=== PATIENT | male | born 1945 | race Caucasian/White ===

== ENCOUNTER 2018-04-07 14:16 | Inpatient (IN) | payer MEDICARE, OTHER ==
[~2018-04-07] VITALS: Ht 180.3 cm; Wt 113.5 kg
[~2018-04-07 14:16] MED LIST: ALBU8.5H8 IH; ASPI-611 PO; ATOR80TA PO; BUPR150T6 PO; CALC-1197 PO; CARV-50 PO; DIGO125T97 PO; FLO110IN INH; FURO40TA4 PO; MULT-227 PO; NIT10P TD; NITR0.4T48 SL; OMEG1CAP2 PO; OMEP20TA5 PO; SPIIN INH; WARF-65 PO
[2018-04-07] MEDS ORDERED: ipratropium/albuterol 3ml nebule NEB ONE (14:25)
[2018-04-07] MEDS ORDERED: methylPREDNISolone sod succ 125mg/2ml vial IV ONE (14:25)
[2018-04-07] MEDS ORDERED: normal saline 1000ML IV soln IVB ONE (14:25)
[2018-04-07] MEDS ORDERED: verapamil 2.5 mg/ml inj IV ONE (14:45)
[2018-04-07 14:55] LABS: ABG BASE EXCESS 1.5 mmol/L (-2.0-3.0); ABG HCO3 25.6 mmol/L (22.0-26.0); ABG OXYGEN SATURATION 90.8 % (95-98); ABG PCO2 (T) 38.5 mmHg (35.0-48.0); ABG PH (T) 7.441 (7.350-7.450); ABG PO2 (T) 59.8 mmHg (83-108); ALLEN'S TEST Positive; FCOHb 1.3 % (0.5-1.5); FLOW 4 L/min; FMetHb 0.1 % (0.3-1.12); FO2Hb 89.5 % (94-100); TOTAL HEMOGLOBIN 12.5 G/dl (14.0-18.0)
[2018-04-07 14:55] LABS: BASOPHILS % (AUTO) 0.3 % (0-1); EOSINOPHILS % (AUTO) 0.2 % (0-6); HEMOGLOBIN 11.5 g/dl (14.0-17.9); LYMPHOCYTES # (AUTO) 0.6 X10'3 (1.1-4.8); MEAN CORPUSCULAR HEMOGLOBIN 29.5 PG (27.0-31.0); MEAN CORPUSCULAR HGB CONC 32.9 % (33.0-36.5); MEAN CORPUSCULAR VOLUME 89.6 FL (78-98); MEAN PLATELET VOLUME 7.4 FL (7.4-10.4); MONOCYTES # (AUTO) 0.6 X10'3 (0-0.9); MONOCYTES % (AUTO) 7.2 % (2-12); NEUTROPHILS # (AUTO) 6.7 X10'3 (1.8-7.7); NEUTROPHILS % (AUTO) 84.3 % (42-75); PLATELET COUNT 254 X10'3 (140-440); RED BLOOD COUNT 3.91 X10'6 (4.70-6.10); RED CELL DISTRIBUTION WIDTH 16.7 % (11.5-14.5); WHITE BLOOD COUNT 7.9 X10'3 (4.5-11.0)
[2018-04-07 15:06] LABS: INR 1.3 INR; PARTIAL THROMBOPLASTIN TIME 30 SECONDS (22-32)
[2018-04-07 15:12] LABS: ALANINE AMINOTRANSFERASE 25 U/L (12-78); ALBUMIN 3.1 G/DL (3.4-5.0); ALBUMIN/GLOBULIN RATIO 0.7 (1.1-1.5); ALKALINE PHOSPHATASE 126 IU/L (46-116); ANION GAP 8 (8-16); ASPARTATE AMINO TRANSFERASE 17 U/L (10-37); BILIRUBIN,TOTAL 0.9 MG/DL (0.1-1.0); BLOOD UREA NITROGEN 19 MG/DL (7-18); BUN/CREATININE RATIO 13.7 (5.4-32.0); CALCIUM 8.6 MG/DL (8.5-10.1); CHLORIDE 104 MMOL/L (99-107); CREATININE 1.39 MG/DL (0.60-1.10); GLUCOSE 151 MG/DL (70-104); POTASSIUM 4.2 MMOL/L (3.5-5.1); SODIUM 142 MMOL/L (135-145); TOTAL CARBON DIOXIDE 30.3 MMOL/L (24-32); TOTAL PROTEIN 7.6 G/DL (6.4-8.2); eGFR 51 ML/MIN
[2018-04-07] MEDS ORDERED: furosemide 10 MG/1 ML 10ml inj IV ONE (15:35)
[2018-04-07] MEDS ORDERED: HYDROcodone/acetaminophen 5mg/325mg tablet PO PRN (17:40)
[2018-04-07] MEDS ORDERED: ondansetron/PF 4mg/2ml inj IV PRN (17:40)
[2018-04-07] MEDS ORDERED: diltiazem 5mg/ml 5ml inj. IV PRN (17:50)
[2018-04-07] MEDS: ipratropium/albuterol 3ml nebule NEB SCH (19:53)
[2018-04-07 20:00] VITALS: BP 130/92
[2018-04-07] MEDS: furosemide 40mg/4ml inj IV SCH (20:10)
[2018-04-07] MEDS: methylPREDNISolone sod succ/PF 40mg inj. IV SCH (20:10)
[2018-04-07 23:00] VITALS: BP 120/84
[2018-04-07] MEDS: albuterol 2.5 MG/3 ML nebule NEB PRN (23:57)
[2018-04-08] VITALS (16 sets, daily range): BP systolic 91–130; BP diastolic 51–95
[2018-04-08 02:18] LABS: BASOPHILS % (AUTO) 0 % (0-1); EOSINOPHILS % (AUTO) 0 % (0-6); HEMATOCRIT 32.8 % (42.0-52.0); HEMOGLOBIN 10.9 g/dl (14.0-17.9); LYMPHOCYTES # (AUTO) 0.3 X10'3 (1.1-4.8); MEAN CORPUSCULAR HEMOGLOBIN 29.5 PG (27.0-31.0); MEAN CORPUSCULAR HGB CONC 33.3 % (33.0-36.5); MEAN CORPUSCULAR VOLUME 88.5 FL (78-98); MEAN PLATELET VOLUME 7.5 FL (7.4-10.4); MONOCYTES % (AUTO) 0.6 % (2-12); NEUTROPHILS # (AUTO) 4.5 X10'3 (1.8-7.7); NEUTROPHILS % (AUTO) 93.4 % (42-75); PLATELET COUNT 235 X10'3 (140-440); RED CELL DISTRIBUTION WIDTH 16.3 % (11.5-14.5); WHITE BLOOD COUNT 4.8 X10'3 (4.5-11.0)
[2018-04-08 02:35] LABS: ANION GAP 9 (8-16); BLOOD UREA NITROGEN 21 MG/DL (7-18); BUN/CREATININE RATIO 14.7 (5.4-32.0); CALCIUM 8.6 MG/DL (8.5-10.1); CHLORIDE 102 MMOL/L (99-107); CREATININE 1.43 MG/DL (0.60-1.10); GLUCOSE 185 MG/DL (70-104); POTASSIUM 3.6 MMOL/L (3.5-5.1); SODIUM 140 MMOL/L (135-145); TOTAL CARBON DIOXIDE 29.2 MMOL/L (24-32); eGFR 49 ML/MIN
[2018-04-08] MEDS: albuterol 2.5 MG/3 ML nebule NEB PRN (03:09)
[2018-04-08] MEDS ORDERED: diltiazem 5mg/ml 5ml inj. IV ONE ×2 (05:35→15:35)
[2018-04-08] MEDS: ipratropium/albuterol 3ml nebule NEB SCH ×4 (07:00→19:50)
[2018-04-08] MEDS: methylPREDNISolone sod succ/PF 40mg inj. IV SCH ×4 (08:58→23:06)
[2018-04-08] MEDS: furosemide 40mg/4ml inj IV SCH ×2 (08:58→20:22)
[2018-04-08] MEDS ORDERED: nitroGLYCERIN 0.4mg SUBLingual tab SL PRN (10:10)
[2018-04-08] MEDS ORDERED: APIX5TAB3 PO (10:11)
[2018-04-08] MEDS ORDERED: diltiazem-NS 100mg/100ml 100 ML IV PRN (10:14)
[2018-04-08] MEDS ORDERED: CefTRIAXone/D5W-Rocephin 1gm 50 ML IV SCH (10:25)
[2018-04-08] MEDS: apixaban 5mg tablet PO SCH ×2 (10:43→20:23)
[2018-04-08] MEDS ORDERED: [UNRECOGNIZED DRUG - OTHER] IV ONE (10:49)
[2018-04-08] MEDS ORDERED: CEFTRIAXONE IV ONE (10:49)
[2018-04-08] MEDS: cefTRIAXone 1g/NS 100ml IVPB 100 ML IV SCH (10:55)
[2018-04-08] MEDS: aspirin 81mg tablet.DR PO SCH (11:12)
[2018-04-08] MEDS: calcium carbonate/vitamin D3 tablet PO SCH (12:38)
[2018-04-08] MEDS ORDERED: digoxin 125mcg (0.125mg) tablet PO ONE (13:30)
[2018-04-08] MEDS: potassium Cl 20 mEq SR tablet PO SCH (17:04)
[2018-04-08] MEDS: atorvastatin 20mg tablet PO SCH (17:04)
[2018-04-08] MEDS: budesonide 0.5mg/2ml UD nebule IH SCH (19:51)
[2018-04-08] MEDS: carvedilol 6.25mg tablet PO SCH (20:23)
[2018-04-08] MEDS: buPROPion SR 150mg tablet PO SCH (20:23)
[2018-04-08] MEDS ORDERED: digoxin 250mcg/ml 2ml ampule IV ONE (22:45)
[2018-04-09] VITALS (15 sets, daily range): BP systolic 93–129; BP diastolic 64–99
[2018-04-09] MEDS: diltiazem-NS 100mg/100ml 100 ML IV PRN ×2 (01:44→08:05)
[2018-04-09 05:44] LABS: ALBUMIN 2.9 G/DL (3.4-5.0); ANION GAP 8 (8-16); BLOOD UREA NITROGEN 27 MG/DL (7-18); BUN/CREATININE RATIO 23.1 (5.4-32.0); CALCIUM 9.2 MG/DL (8.5-10.1); CHLORIDE 100 MMOL/L (99-107); CREATININE 1.17 MG/DL (0.60-1.10); GLUCOSE 137 MG/DL (70-104); SODIUM 136 MMOL/L (135-145); TOTAL CARBON DIOXIDE 28.2 MMOL/L (24-32); eGFR 62 ML/MIN
[2018-04-09 05:48] LABS: POTASSIUM 4.2 MMOL/L (3.5-5.1)
[2018-04-09] MEDS: budesonide 0.5mg/2ml UD nebule IH SCH ×2 (07:55→20:04)
[2018-04-09] MEDS: ipratropium/albuterol 3ml nebule NEB SCH ×4 (07:56→20:05)
[2018-04-09] MEDS ORDERED: digoxin 125mcg (0.125mg) tablet PO SCH (08:00)
[2018-04-09] MEDS ORDERED: non-formulary drug (Tiotropium Bromide (SPIRIVA inhaler) 1 CAP) INH SCH (08:00)
[2018-04-09] MEDS: nitroGLYCERIN 0.4mg/hour patch TD SCH (08:00)
[2018-04-09] MEDS: cefTRIAXone 1g/NS 100ml IVPB 100 ML IV SCH (08:05)
[2018-04-09] MEDS: apixaban 5mg tablet PO SCH ×2 (08:09→19:41)
[2018-04-09] MEDS: lisinopril 2.5mg tablet PO SCH (08:09)
[2018-04-09] MEDS: buPROPion SR 150mg tablet PO SCH ×2 (08:09→19:40)
[2018-04-09] MEDS: furosemide 40mg/4ml inj IV SCH ×2 (08:09→19:41)
[2018-04-09] MEDS: aspirin 81mg tablet.DR PO SCH (08:09)
[2018-04-09] MEDS: multivitamins, therapeutics tablet PO SCH (08:09)
[2018-04-09] MEDS: potassium Cl 20 mEq SR tablet PO SCH ×2 (08:09→16:53)
[2018-04-09] MEDS: carvedilol 6.25mg tablet PO SCH (08:09)
[2018-04-09] MEDS: methylPREDNISolone sod succ/PF 40mg inj. IV SCH ×3 (08:09→23:23)
[2018-04-09] MEDS: calcium carbonate/vitamin D3 tablet PO SCH (08:09)
[2018-04-09] MEDS: pantoprazole 40mg Tablet.DR PO SCH (08:09)
[2018-04-09] MEDS: OMEGA-3/DHA/EPA/FISH OIL 1 EACH CAPSULE.DR PO SCH (08:36)
[2018-04-09] MEDS ORDERED: diltiazem-NS 100mg/100ml 100 ML IV PRN ×9 (10:14→21:25)
[2018-04-09] MEDS ORDERED: digoxin 250mcg (0.25mg) tablet PO ONE (13:00)
[2018-04-09] MEDS: metoprolol tartrate 25mg tablet PO SCH ×2 (13:31→19:40)
[2018-04-09] MEDS: atorvastatin 20mg tablet PO SCH (16:53)
[2018-04-09] MEDS: lactobacillus rhamnosus 10,000 MMU CELLS/CAPSULE PO SCH (19:40)
[2018-04-09] MEDS: albuterol 2.5 MG/3 ML nebule NEB PRN (23:28)
[2018-04-10] VITALS (15 sets, daily range): BP systolic 101–125; BP diastolic 53–95
[2018-04-10] MEDS ORDERED: diltiazem-NS 100mg/100ml 100 ML IV PRN ×2 (03:35→21:25)
[2018-04-10 05:59] LABS: ALBUMIN 2.9 G/DL (3.4-5.0); ANION GAP 6 (8-16); BLOOD UREA NITROGEN 29 MG/DL (7-18); CALCIUM 8.9 MG/DL (8.5-10.1); CHLORIDE 102 MMOL/L (99-107); CREATININE 1.16 MG/DL (0.60-1.10); GLUCOSE 134 MG/DL (70-104); POTASSIUM 4.4 MMOL/L (3.5-5.1); SODIUM 138 MMOL/L (135-145); TOTAL CARBON DIOXIDE 30.1 MMOL/L (24-32); eGFR 62 ML/MIN
[2018-04-10 07:12] LABS: MAGNESIUM 2.3 MG/DL (1.5-2.4)
[2018-04-10] MEDS: ipratropium/albuterol 3ml nebule NEB SCH ×4 (07:36→19:00)
[2018-04-10] MEDS: budesonide 0.5mg/2ml UD nebule IH SCH ×2 (07:37→19:00)
[2018-04-10] MEDS: cefTRIAXone 1g/NS 100ml IVPB 100 ML IV SCH (07:38)
[2018-04-10] MEDS: buPROPion SR 150mg tablet PO SCH ×2 (07:39→20:08)
[2018-04-10] MEDS: multivitamins, therapeutics tablet PO SCH (07:39)
[2018-04-10] MEDS: furosemide 40mg/4ml inj IV SCH ×2 (07:39→20:08)
[2018-04-10] MEDS: OMEGA-3/DHA/EPA/FISH OIL 1 EACH CAPSULE.DR PO SCH (07:39)
[2018-04-10] MEDS: apixaban 5mg tablet PO SCH ×2 (07:39→20:08)
[2018-04-10] MEDS: calcium carbonate/vitamin D3 tablet PO SCH (07:39)
[2018-04-10] MEDS: aspirin 81mg tablet.DR PO SCH (07:39)
[2018-04-10] MEDS: metoprolol tartrate 25mg tablet PO SCH ×2 (07:39→20:08)
[2018-04-10] MEDS: pantoprazole 40mg Tablet.DR PO SCH (07:40)
[2018-04-10] MEDS: digoxin 125mcg (0.125mg) tablet PO SCH (07:41)
[2018-04-10] MEDS: methylPREDNISolone sod succ/PF 40mg inj. IV SCH ×2 (07:41→17:58)
[2018-04-10] MEDS: potassium Cl 20 mEq SR tablet PO SCH ×2 (07:41→17:58)
[2018-04-10] MEDS: lactobacillus rhamnosus 10,000 MMU CELLS/CAPSULE PO SCH ×2 (07:41→20:08)
[2018-04-10] MEDS: lisinopril 2.5mg tablet PO SCH (07:41)
[2018-04-10] MEDS: nitroGLYCERIN 0.4mg/hour patch TD SCH (08:00)
[2018-04-10] MEDS: diltiazem CD 180mg cap (once-daily) PO SCH (10:11)
[2018-04-10] MEDS: atorvastatin 20mg tablet PO SCH (17:58)
[2018-04-11] MEDS: methylPREDNISolone sod succ/PF 40mg inj. IV SCH ×3 (00:54→20:14)
[2018-04-11 03:00] VITALS: BP 111/68
[2018-04-11 06:00] VITALS: BP 114/60
[2018-04-11 06:58] LABS: ALBUMIN 2.9 G/DL (3.4-5.0); ANION GAP 7 (8-16); BLOOD UREA NITROGEN 33 MG/DL (7-18); BUN/CREATININE RATIO 28.4 (5.4-32.0); CALCIUM 8.6 MG/DL (8.5-10.1); CHLORIDE 102 MMOL/L (99-107); CREATININE 1.16 MG/DL (0.60-1.10); GLUCOSE 122 MG/DL (70-104); POTASSIUM 4.7 MMOL/L (3.5-5.1); SODIUM 137 MMOL/L (135-145); TOTAL CARBON DIOXIDE 28.5 MMOL/L (24-32); eGFR 62 ML/MIN
[2018-04-11] MEDS: nitroGLYCERIN 0.4mg/hour patch TD SCH (08:00)
[2018-04-11] MEDS: ipratropium/albuterol 3ml nebule NEB SCH ×4 (08:42→19:23)
[2018-04-11] MEDS: budesonide 0.5mg/2ml UD nebule IH SCH ×2 (08:42→19:23)
[2018-04-11] MEDS: pantoprazole 40mg Tablet.DR PO SCH (08:47)
[2018-04-11] MEDS: lisinopril 2.5mg tablet PO SCH (08:47)
[2018-04-11] MEDS: potassium Cl 20 mEq SR tablet PO SCH ×2 (08:47→16:42)
[2018-04-11] MEDS: metoprolol tartrate 25mg tablet PO SCH ×2 (08:48→20:15)
[2018-04-11] MEDS: lactobacillus rhamnosus 10,000 MMU CELLS/CAPSULE PO SCH ×2 (08:48→20:15)
[2018-04-11] MEDS: multivitamins, therapeutics tablet PO SCH (08:48)
[2018-04-11] MEDS: calcium carbonate/vitamin D3 tablet PO SCH (08:48)
[2018-04-11] MEDS: apixaban 5mg tablet PO SCH ×2 (08:49→20:15)
[2018-04-11] MEDS: OMEGA-3/DHA/EPA/FISH OIL 1 EACH CAPSULE.DR PO SCH (08:49)
[2018-04-11] MEDS: buPROPion SR 150mg tablet PO SCH ×2 (08:49→20:15)
[2018-04-11] MEDS: aspirin 81mg tablet.DR PO SCH (08:49)
[2018-04-11] MEDS: diltiazem CD 180mg cap (once-daily) PO SCH (08:50)
[2018-04-11] MEDS: digoxin 125mcg (0.125mg) tablet PO SCH (08:56)
[2018-04-11] MEDS: cefTRIAXone 1g/NS 100ml IVPB 100 ML IV SCH (08:58)
[2018-04-11] MEDS: furosemide 40mg/4ml inj IV SCH ×2 (08:58→20:14)
[2018-04-11 11:00] VITALS: BP 131/59
[2018-04-11 15:00] VITALS: BP 129/74
[2018-04-11] MEDS: atorvastatin 20mg tablet PO SCH (16:42)
[2018-04-11 19:00] VITALS: BP 137/75
[2018-04-11 23:07] VITALS: BP 121/63
[2018-04-11] MEDS: albuterol 2.5 MG/3 ML nebule NEB PRN (23:31)
[2018-04-12] MEDS: albuterol 2.5 MG/3 ML nebule NEB PRN (02:54)
[2018-04-12 03:00] VITALS: BP 118/66
[2018-04-12 07:02] LABS: ALBUMIN 2.8 G/DL (3.4-5.0); ANION GAP 4 (8-16); BLOOD UREA NITROGEN 40 MG/DL (7-18); BUN/CREATININE RATIO 31.7 (5.4-32.0); CALCIUM 8.8 MG/DL (8.5-10.1); CHLORIDE 102 MMOL/L (99-107); CREATININE 1.26 MG/DL (0.60-1.10); GLUCOSE 133 MG/DL (70-104); POTASSIUM 4.9 MMOL/L (3.5-5.1); SODIUM 138 MMOL/L (135-145); TOTAL CARBON DIOXIDE 31.8 MMOL/L (24-32); eGFR 57 ML/MIN
[2018-04-12 07:07] VITALS: BP 126/62
[2018-04-12] MEDS: ipratropium/albuterol 3ml nebule NEB SCH ×2 (07:14→11:26)
[2018-04-12] MEDS: budesonide 0.5mg/2ml UD nebule IH SCH (07:15)
[2018-04-12] MEDS: nitroGLYCERIN 0.4mg/hour patch TD SCH (08:00)
[2018-04-12] MEDS: apixaban 5mg tablet PO SCH (08:15)
[2018-04-12] MEDS: lactobacillus rhamnosus 10,000 MMU CELLS/CAPSULE PO SCH (08:15)
[2018-04-12] MEDS: metoprolol tartrate 25mg tablet PO SCH (08:15)
[2018-04-12] MEDS: buPROPion SR 150mg tablet PO SCH (08:15)
[2018-04-12] MEDS: digoxin 125mcg (0.125mg) tablet PO SCH (08:17)
[2018-04-12] MEDS: diltiazem CD 180mg cap (once-daily) PO SCH (08:17)
[2018-04-12] MEDS: methylPREDNISolone sod succ/PF 40mg inj. IV SCH (08:17)
[2018-04-12] MEDS: aspirin 81mg tablet.DR PO SCH (08:17)
[2018-04-12] MEDS: multivitamins, therapeutics tablet PO SCH (08:17)
[2018-04-12] MEDS: lisinopril 2.5mg tablet PO SCH (08:17)
[2018-04-12] MEDS: calcium carbonate/vitamin D3 tablet PO SCH (08:17)
[2018-04-12] MEDS: cefTRIAXone 1g/NS 100ml IVPB 100 ML IV SCH (08:18)
[2018-04-12] MEDS: furosemide 40mg/4ml inj IV SCH (08:18)
[2018-04-12] MEDS: OMEGA-3/DHA/EPA/FISH OIL 1 EACH CAPSULE.DR PO SCH (08:23)
[2018-04-12] MEDS: pantoprazole 40mg Tablet.DR PO SCH (08:23)
[2018-04-12] MEDS: potassium Cl 20 mEq SR tablet PO SCH (08:23)
[2018-04-12] MEDS ORDERED: CEFD300C3 PO (12:29)
[2018-04-12] MEDS ORDERED: DILT180C66 PO (12:29)
[2018-04-12] MEDS ORDERED: METO25TA6 PO (12:29)
[2018-04-12] MEDS ORDERED: PRED20TA PO (12:29)
[2018-04-12] MEDS ORDERED: LISI2.5T2 PO (12:29)
[2018-04-12] MEDS ORDERED: DIGO125T5 PO (12:29)
== END 2018-04-12 15:30 | DRG 291 ==
LOC: ER 14:18 → ED HOLD 17:38 → EDBEDREQ 18:28 → PCU 3S 19:30
PROVIDERS: ADMIT Internal Medicine; ATTEND Family Medicine
PROC: CB221ZZ Tomographic (Tomo) Nuclear Medicine Imaging of Lungs and Bronchi using Technetium 99m (Tc-99m) (ICD-10-PCS; principal; 2018-04-08)
DX: I11.0 Hypertensive heart disease with heart failure (principal); J96.21 Acute and chronic respiratory failure with hypoxia; J44.1 Chronic obstructive pulmonary disease with (acute) exacerbation; I48.92 Unspecified atrial flutter; I50.23 Acute on chronic systolic (congestive) heart failure; I48.2 Chronic atrial fibrillation; I25.10 Atherosclerotic heart disease of native coronary artery without angina pectoris; J84.10 Pulmonary fibrosis, unspecified; Z95.1 Presence of aortocoronary bypass graft; Z95.810 Presence of automatic (implantable) cardiac defibrillator; Z99.81 Dependence on supplemental oxygen; I25.2 Old myocardial infarction; Z79.82 Long term (current) use of aspirin; Z79.899 Other long term (current) drug therapy; Z79.01 Long term (current) use of anticoagulants; Z79.51 Long term (current) use of inhaled steroids; Z87.891 Personal history of nicotine dependence; Z86.718 Personal history of other venous thrombosis and embolism; Z82.49 Family history of ischemic heart disease and other diseases of the circulatory system
CPT/HCPCS: 36415; 36600; 70450; 71045; 78582; 80048; 80053; 80162; 82803; 83605; 83735; 83880; 84484; 85018; 85025; 85610; 85730; 87040; 87070; 93005; 93970; 94640; 94760; 96361; 96374; 96375; 97116; 97162; 97530; 99285; A4315; A9539; A9540; J0696; J1160; J1940; J2920; J2930; J3490; J7030; J7626